=== PATIENT | male | born 1985 | race Caucasian/White ===

== ENCOUNTER → 2018-11-03 | Outpatient (CLI) | payer OTHER ==
--- NOTE | 2018-11-03 20:11 | REP ---
Left index finger series: Four views. History: Injury. Findings: Four views of the index finger demonstrate soft tissue swelling about the PIP joint and proximal phalanx. There is a subtle cortical disruption along the palmar surface of the base of the middle phalanx at the PIP joint. This may be a volar plate type chip fracture. No opaque foreign body or soft tissue gas is seen. Impression: Soft-tissue swelling. Possible chip fracture at the base of the middle phalanx at the PIP joint of the index finger. Electronically Signed by Clifton Ayala MD 11/04/2018 09:33 A
== END ==
LOC: M LRY 15:04
PROVIDERS: ATTEND Physician Assistant
DX: S69.92XA Unspecified injury of left wrist, hand and finger(s), initial encounter (principal); W18.30XA Fall on same level, unspecified, initial encounter; Y92.009 Unspecified place in unspecified non-institutional (private) residence as the place of occurrence of the external cause

== ENCOUNTER → 2018-11-03 | Outpatient (REF) | payer OTHER | LOC: M SFHCLERA 15:02 | PROVIDERS: ATTEND Physician Assistant | DX: J02.9 Acute pharyngitis, unspecified (principal) ==

== ENCOUNTER → 2018-12-21 | Outpatient (REF) | payer OTHER ==
[2018-12-21 11:53] LABS: INFLUENZA A AMPLIFICATION POSITIVE (NEGATIVE); INFLUENZA B AMPLIFICATION NEGATIVE (NEGATIVE)
== END ==
LOC: M LAB REF 11:02
PROVIDERS: ATTEND Physician Assistant Medical
DX: J11.1 Influenza due to unidentified influenza virus with other respiratory manifestations (principal)